=== PATIENT | female | born 1995 | race Caucasian/White ===

== ENCOUNTER 2017-06-13 12:19 | Emergency (ER) | payer SELFPAY ==
[~2017-06-13] VITALS: Ht 152.4 cm; Wt 67.0 kg
[2017-06-13 12:24] VITALS: Ht 152.4 cm; Wt 67.0 kg
--- NOTE | 2017-06-13 14:32 | RADRPT ---
PROCEDURE: XR Ankle. CLINICAL INDICATION: Right ankle pain TECHNIQUE: 3 views of the right ankle were performed. COMPARISON: None. FINDINGS: There is no acute fracture. Alignment is normal. Joint spaces are preserved. There is mild soft tissue swelling over the distal fibula. IMPRESSION: 1. No radiographic evidence of acute osseous abnormality. 2. Mild lateral soft tissue swelling. RPTAT: UU .Rodney Martell MD, MD Date Time Electronically viewed and signed by .Rodney Martell MD, on 06/13/2017 14:32 .K/
--- NOTE | 2017-06-13 14:33 | RADRPT ---
PROCEDURE: XR Foot. CLINICAL INDICATION: Right foot pain TECHNIQUE: 3 views of the right foot are available for review. COMPARISON: Radiographs of the right ankle same day FINDINGS: There is no acute fracture. Alignment is normal. Joint spaces are preserved. There is mild lateral soft tissue swelling. IMPRESSION: 1. No radiographic evidence of acute osseous abnormality. 2. Mild lateral soft tissue swelling. RPTAT: UU .Rodney Martell MD, MD Date Time Electronically viewed and signed by .Rodney Martell MD, on 06/13/2017 14:32 .K/
[2017-06-13] MEDS ORDERED: IBUP-1542 PO (15:25)
--- NOTE | 2017-06-13 15:38 | ERD ---
ER Documentation Chief Complaint Chief Complaint Complains of R foot pain after an injury at the her job HPI Patient is a 21-year-old female who presents ED for concerns of right foot pain x 1 day. Patient states yesterday while she was at work she bumped her right foot into the corner of the fridge. Since that time she has had swelling to her right foot and reports pain with ambulating. Patient reports taking Advil with some alleviation of symptoms. Patient states she has pain with walking. Patient denies any previous injuries to the affected extremity. Patient states the pain is localized to the ankle and the foot. Patient denies any knee pain. Patient denies any fevers, chills, nausea, vomiting, LOC. ROS All systems reviewed and are negative except as per history of present illness. Medications Home Meds Active Scripts Ibuprofen* (Motrin*) 600 Mg Tab, 600 MG PO Q6, #30 TAB Prov:JAJA SANCHEZ PA-C 06/13/17 Allergies Allergies: Coded Allergies: No Known Allergy (Unverified , 06/13/17) PMhx/Soc History of Surgery: No Anesthesia Reaction: No Hx Neurological Disorder: No Hx Respiratory Disorders: No Hx Cardiac Disorders: No Hx Psychiatric Problems: No Hx Miscellaneous Medical Probl: No Hx Alcohol Use: No Hx Substance Use: No Hx Tobacco Use: No Smoking Status: Never smoker Physical Exam Vitals Vital Signs Date Time Temp Pulse Resp B/P Pulse Ox O2 Delivery O2 Flow Rate FiO2 06/13/17 12:24 98.8 89 20 129/65 98 Physical Exam GENERAL: Well-developed, well-nourished female. Appears in no acute distress. HEAD: Normocephalic, atraumatic. EYES: Pupils are equally reactive bilaterally. EOMs grossly intact. No conjunctival erythema. ENT: Moist mucous membranes. No uvula deviation. No kissing tonsils. NECK: Supple. No meningismus. Normal range of motion of the neck. LUNG: Clear to auscultation bilaterally. No rhonchi, wheezing, rales or coarse breath sounds. HEART: Regular rate and rhythm. No murmurs, rubs or gallops. EXTREMITIES: Equal pulses bilaterally. No peripheral clubbing, cyanosis or edema. No unilateral leg swelling. NEUROLOGIC: Alert and oriented. Moving all four extremities without any difficulty. Normal speech. Steady gait. SKIN: Normal color. Warm and dry. No rashes or lesions. RIGHT FOOT: Swelling noted to the midfoot, lateral ankle. No ecchymosis. No lacerations.. Skin intact. Full ROM the knee. Decreased range of motion of the ankle area swelling. Tender to palpation over the midfoot and lateral ankle. Nontender palpation of the fifth metatarsal. Tender to palpation of the proximal tibia-fibula.. NSensation intact to light touch. Neurovascularly intact. (Able to plantarflex, dorsiflex, beto foot, invert foot, raise big toe. ) 2+ DP and DT pulses. Procedures/MDM ED COURSE: The patient was stable throughout ED course. I kept the patient and/or family informed of laboratory and diagnostic imaging results throughout the ED course. DIAGNOSTIC IMAGING: Read by radiologist. Patient: KEANU POOL : 1995 Age: 21 Sex: F MR #: [id number] DOS: 06/13/17 1339 Ordering MD: JAJA SANCHEZ PA-C Location: [facility] Room/Bed: PROCEDURE: XR Ankle. CLINICAL INDICATION: Right ankle pain TECHNIQUE: 3 views of the right ankle were performed. COMPARISON: None. FINDINGS: There is no acute fracture. Alignment is normal. Joint spaces are preserved. There is mild soft tissue swelling over the distal fibula. IMPRESSION: 1. No radiographic evidence of acute osseous abnormality. 2. Mild lateral soft tissue swelling. RPTAT: UU .Rodney Martell MD, MD Date Time Electronically viewed and signed by .Rodney Martell MD, MD on 06/13/2017 14: 32 .K/ CC: JAJA SANCHEZ PA-C DIAGNOSTIC IMAGING REPORT Patient: KEANU POOL : 1995 Age: 21 Sex: F MR #: [id number] DOS: 06/13/17 1339 Ordering MD: JAJA SANCHEZ PA-C Location: [facility] Room/Bed: PROCEDURE: XR Foot. CLINICAL INDICATION: Right foot pain TECHNIQUE: 3 views of the right foot are available for review. COMPARISON: Radiographs of the right ankle same day FINDINGS: There is no acute fracture. Alignment is normal. Joint spaces are preserved. There is mild lateral soft tissue swelling. IMPRESSION: 1. No radiographic evidence of acute osseous abnormality. 2. Mild lateral soft tissue swelling. RPTAT: UU .Rodney Martell MD, MD Date Time Electronically viewed and signed by .Rodney Martell MD, MD on 06/13/2017 14: 32 .K/ CC: JAJA SANCHEZ PA-C PROCEDURES: SPLINT APPLICATION: The patient was verbally consented at bedside prior to splint application. Patient was explained the risks, benefits and alternatives to this procedure. The patient was neurovascularly intact prior to and status post application of the splint. The patient tolerated the procedure well with no complications. Splint type: SUDHEER wrap Extremity: Right Indication: foot vs ankle sprain MEDICAL DECISION MAKING: This is a 21-year-old female presents ED for concerns of right foot and ankle pain after hitting her foot on the fridge while at work yesterday. Vital signs were reviewed. Patient was afebrile. Xray imaging was unremarkable. Patient was given crutches as well as placed an Sudheer wrap for comfort measures. Patient was given a note to be accommodated for at work. At this time, patient's presentation most consistent with foot and ankle sprain. I have a much lower clinical concern for ankle dislocation, ankle fracture, tibia fracture, fibula fracture, tibial plateau fracture, Maisonneuve fracture, foot fracture, osteomyelitis, septic joint, gout, osteoarthritis, DVT, compartment syndrome. At this time, unable to rule out any tendon and ligament injuries. PRESCRIPTIONS: Ibuprofen DISCHARGE: At this time, patient is stable for discharge and outpatient management. Patient was given a copy of all imaging studies obtained today. RICE therapy and ROM exercises were advised to avoid stiffness. I have instructed the patient to follow-up with his/her primary care physician in 1-2 days. I have discussed with the patient the possibility of needing to see an data management specialist for further workup and imaging if the pain persists. I have instructed the patient to promptly return to the ER for any new or worsening symptoms including increased pain, swelling, redness, warmth or fever. The patient and/or family expressed understanding of and agreement with this plan. All questions were answered. Home care instructions were provided. Disclaimer: Inadvertent spelling and grammatical errors are likely due to EHR/ dictation software use and do not reflect on the overall quality of patient care. Also, please note that the electronic time recorded on this note does not necessarily reflect the actual time of the patient encounter. Departure Diagnosis: Primary Impression: Foot sprain Condition: Stable Patient Instructions: Sprain Foot Referrals: [facility] YOU HAVE RECEIVED A MEDICAL SCREENING EXAM AND THE RESULTS INDICATE THAT YOU DO NOT HAVE A CONDITION THAT REQUIRES URGENT TREATMENT IN THE EMERGENCY DEPARTMENT. FURTHER EVALUATION AND TREATMENT OF YOUR CONDITION CAN WAIT UNTIL YOU ARE SEEN IN YOUR DOCTORS OFFICE WITHIN THE NEXT 1-2 DAYS. IT IS YOUR RESPONSIBILITY TO MAKE AN APPOINTMENT FOR FOLOW-UP CARE. IF YOU HAVE A PRIMARY DOCTOR --you should call your primary doctor and schedule an appointment IF YOU DO NOT HAVE A PRIMARY DOCTOR YOU CAN CALL OUR PHYSICIAN REFERRAL HOTLINE AT IF YOU CAN NOT AFFORD TO SEE A PHYSICIAN YOU CAN CHOSE FROM THE FOLLOWING [facility] [address] [facility]. [facility] [address] [facility]. [facility] [address] [facility] [facility] [address] [facility] [facility] [address] [facility]. [facility]. [address] [facility]. [facility] YOU HAVE RECEIVED A MEDICAL SCREENING EXAM AND THE RESULTS INDICATE THAT YOU DO NOT HAVE A CONDITION THAT REQUIRES URGENT TREATMENT IN THE EMERGENCY DEPARTMENT. FURTHER EVALUATION AND TREATMENT OF YOUR CONDITION CAN WAIT UNTIL YOU ARE SEEN IN YOUR DOCTORS OFFICE WITHIN THE NEXT 1-2 DAYS. IT IS YOUR RESPONSIBILITY TO MAKE AN APPOINTMENT FOR FOLOW-UP CARE. IF YOU HAVE A PRIMARY DOCTOR --you should call your primary doctor and schedule and appointment IF YOU DO NOT HAVE A PRIMARY DOCTOR YOU CAN CALL OUR PHYSICIAN REFERRAL HOTLINE AT . IF YOU CAN NOT AFFORD TO SEE A PHYSICIAN YOU CAN CHOSE FROM THE FOLLOWING [facility] INSTITUTIONS: [facility] [address] [place] [address] [facility] [address] [place] [address] [facility] + [facility] [address] [place] [address] [facility] Hours: Mon-Fri 9:00 AM - 5:00 PM Additional Instructions: Call your primary care doctor TOMORROW for an appointment during the next 1-2 days.See the doctor sooner or return here if your condition worsens before your appointment time. Follow up with data management specialist. You may need MRI on outpatient basis if pain persists. JAJA SANCHEZ PA-C Jun 13, 2017 15:38
== END 2017-06-13 15:46 | disposition home or self-care (01) ==
LOC: FTE 12:19
DX: S93.601A Unspecified sprain of right foot, initial encounter (principal); W22.8XXA Striking against or struck by other objects, initial encounter; Y92.89 Other specified places as the place of occurrence of the external cause
CPT/HCPCS: 73630